=== PATIENT | male | born 1985 | race Caucasian/White ===

== ENCOUNTER 2022-11-23 20:57 | Emergency (ER) | payer MEDICAID, OTHER ==
[~2022-11-23] VITALS: Ht 175.3 cm; Wt 78.0 kg
[2022-11-23] MEDS ORDERED: NALOXONE HCL 1 MG/ML 2ML VIAL IV ONE (23:30)
[2022-11-23 23:49] LABS: BASOPHILS % 0.6 % (0.0-2.0); HEMATOCRIT. 47.9 % (42.0-52.0); HEMOGLOBIN. 16.3 g/dL (14.0-18.0); LYMPHOCYTES % 17.1 % (20.0-50.0); MEAN CORPUSCULAR HEMOGLOBIN 30.5 pg (28.0-32.0); MEAN CORPUSCULAR VOLUME 89.6 fL (80.0-94.0); MONOCYTES % 5.5 % (2.0-8.0); NEUTROPHILS % 75.8 % (40.0-76.0); PLATELET 251 x1000/uL (130-400); RED BLOOD CELL COUNT 5.34 mill/uL (4.7-6.1); RED CELL DISTRIBUTION WIDTH 12.9 % (11.6-14.6)
[2022-11-24 00:07] LABS: CLARITY URINE CLEAR (CLEAR); COLOR URINE YELLOW (YELLOW); KETONES URINE TRACE (NEGATIVE); LEUKOCYTE ESTERASE URINE NEGATIVE (NEGATIVE); NITRITE URINE NEGATIVE (NEGATIVE); OCCULT BLOOD URINE NEGATIVE (NEGATIVE); PROTEIN URINE TRACE (NEGATIVE); SPECIFIC GRAVITY URINE 1.024 (1.005-1.030)
[2022-11-24 00:19] LABS: *AMPHETAMINES SCREEN URINE PRESUMTIVE POSITIVE (NEGATIVE); *BARBITURATES SCREEN URINE NEGATIVE (NEGATIVE); *BENZODIAZEPINES SCREEN URINE NEGATIVE (NEGATIVE); *COCAINE SCREEN URINE NEGATIVE (NEGATIVE); CANNABINOID URINE SCREEN NEGATIVE (NEGATIVE); METHADONE URINE SCREEN NEGATIVE (NEGATIVE); OPIATES URINE SCREEN PRESUMTIVE POSITIVE (NEGATIVE); PHENCYCLIDINE URINE SCREEN NEGATIVE (NEGATIVE)
[2022-11-24 00:25] LABS: CHLORIDE 109 mEq/L (98-107)
[2022-11-24 00:36] LABS: ETHANOL BLOOD 98 mg/dL
[2022-11-24 03:30] VITALS: BP 147/102
== END 2022-11-24 04:55 | disposition home or self-care (01) ==
LOC: ER 20:57
DX: T43.651A Poisoning by methamphetamines accidental (unintentional), initial encounter (principal); R51.9 Headache, unspecified; I11.9 Hypertensive heart disease without heart failure; F11.90 Opioid use, unspecified, uncomplicated; Y92.89 Other specified places as the place of occurrence of the external cause
CPT/HCPCS: 36415; 70450; 80053; 80305; 80307; 80320; 80329; 81003; 82140; 82962; 83605; 85025; 96374; 99291; J2310; Z7610; G0480

== ENCOUNTER 2023-06-12 19:44 | Emergency (ER) | payer MEDICAID, OTHER ==
[~2023-06-12] VITALS: Ht 175.3 cm; Wt 72.8 kg
[2023-06-12 20:05] VITALS: BP 159/110; PULSE 80; RESP 17; TEMP 98.6; O2SAT 99
[2023-06-12] MEDS ORDERED: LISI20TA31 PO (20:34)
[2023-06-12] MEDS ORDERED: CEPH500C2 PO (20:34)
[2023-06-12] MEDS ORDERED: NAPR-679 MT (20:34)
[2023-06-12] MEDS ORDERED: CHLO473M2 MT (20:34)
[2023-06-12] MEDS ORDERED: SULF1TAB48 MT (20:34)
== END 2023-06-12 20:53 | disposition home or self-care (01) ==
LOC: ER 19:54
DX: S01.512A Laceration without foreign body of oral cavity, initial encounter (principal); K12.2 Cellulitis and abscess of mouth; I10 Essential (primary) hypertension; F11.90 Opioid use, unspecified, uncomplicated; F15.90 Other stimulant use, unspecified, uncomplicated; Y08.89XA Assault by other specified means, initial encounter; Y93.89 Activity, other specified; Y92.89 Other specified places as the place of occurrence of the external cause; Y99.8 Other external cause status
CPT/HCPCS: 99283

== ENCOUNTER 2023-06-15 07:43 | Emergency (ER) | payer MEDICAID, OTHER ==
[~2023-06-15] VITALS: Ht 177.8 cm; Wt 79.4 kg
[~2023-06-15 07:43] MED LIST: CEPH500C2 PO; CHLO473M2 MT; LISI20TA31 PO; NAPR-679 MT; SULF1TAB48 MT
[2023-06-15 07:47] VITALS: O2SAT 100
[2023-06-15] MEDS ORDERED: PIPERACILLIN/TAZ 3.375G PREMIX 50 ML IV ONE (08:45)
[2023-06-15] MEDS ORDERED: SODIUM CHLORIDE 0.9% 1000ML BAG (SEPSIS BOLUS) IV ONE (08:45)
[2023-06-15] MEDS ORDERED: VANCOMYCIN 1G PREMIX 200 ML IV ONE (08:45)
[2023-06-15 09:20] LABS: BASOPHILS % 0.5 % (0.0-2.0); EOSINOPHILS % 2.2 % (0.0-5.0); HEMATOCRIT. 48.9 % (42.0-52.0); HEMOGLOBIN. 16.4 g/dL (14.0-18.0); LYMPHOCYTES % 15.3 % (20.0-50.0); MEAN CORPUSCULAR HEMOGLOBIN 30.2 pg (28.0-32.0); MEAN CORPUSCULAR HGB CONC 33.4 g/dL (31.0-37.0); MEAN CORPUSCULAR VOLUME 90.2 fL (80.0-94.0); MONOCYTES % 7.2 % (2.0-8.0); NEUTROPHILS % 74.8 % (40.0-76.0); PLATELET 274 x1000/uL (130-400); RED BLOOD CELL COUNT 5.42 mill/uL (4.7-6.1)
[2023-06-15 09:31] LABS: INR 0.9; PROTHROMBIN TIME 9.8 sec (9.6-11.0)
[2023-06-15 09:59] LABS: CHLORIDE 105 mEq/L (98-107); INDEX HEMOLYSI 1 (1-3); INDEX ICTERIC 1 (1-4); INDEX LIPEMIC 1 (1-3); SODIUM 136 mEq/L (136-145)
[2023-06-15 10:09] LABS: ALANINE AMINOTRANSFERASE 28 IU/L (13-61); ALBUMIN 3.7 g/dL (3.4-5.0); ASPARTATE AMINOTRANSFERASE 16 IU/L (15-37); BILIRUBIN TOTAL 0.3 mg/dL (0.1-1.0); CALCIUM 8.9 mg/dL (8.5-10.1); CARBON DIOXIDE 28 mEq/L (21-32); GLUCOSE 104 mg/dL (70-105); PROTEIN TOTAL 7.5 g/dL (6.0-8.3); UREA NITROGEN BLOOD 18 mg/dL (7-21)
[2023-06-15 10:21] LABS: CLARITY URINE CLEAR (CLEAR); COLOR URINE YELLOW (YELLOW); GLUCOSE URINE NEGATIVE (NEGATIVE); KETONES URINE NEGATIVE (NEGATIVE); LEUKOCYTE ESTERASE URINE NEGATIVE (NEGATIVE); NITRITE URINE NEGATIVE (NEGATIVE); OCCULT BLOOD URINE NEGATIVE (NEGATIVE); PROTEIN URINE NEGATIVE (NEGATIVE); SPECIFIC GRAVITY URINE 1.019 (1.005-1.030); UROBILINOGEN URINE 0.2 E.U./dL (0.2-1.0)
[2023-06-15 10:36] VITALS: BP 149/94; PULSE 69; RESP 22; TEMP 98.2
[2023-06-15] MEDS ORDERED: KETOROLAC 15MG/ML VIAL IV ONE (12:30)
[2023-06-15] MEDS ORDERED: IOHEXOL-300 100 ML BOTTLE ONE (14:18)
== END 2023-06-15 17:50 | disposition left against medical advice (07) ==
LOC: ER 07:43
DX: L02.01 Cutaneous abscess of face (principal); F15.10 Other stimulant abuse, uncomplicated; F11.10 Opioid abuse, uncomplicated; R51.9 Headache, unspecified
CPT/HCPCS: 80053; 81003; 83605; 85025; 85610; 87040; 87086; 36415; 84145; 71045; 70487; 96368; 96365; 96366; 96375; 99285; Q9967; J1885; J2543; J3370; J7030; Z7610 ×4

== ENCOUNTER 2025-07-05 02:45 | Emergency (ER) | payer MEDICAID, OTHER ==
[~2025-07-05] VITALS: Ht 177.8 cm; Wt 91.0 kg
[2025-07-05 02:48] VITALS: TEMP 97.9; O2SAT 99
[2025-07-05 03:38] LABS: BASOPHILS % 0.6 % (0.0-2.0); EOSINOPHILS % 3.8 % (0.0-5.0); HEMATOCRIT. 45.3 % (42.0-52.0); HEMOGLOBIN. 15.3 g/dL (14.0-18.0); LYMPHOCYTES % 29.0 % (20.0-50.0); MEAN PLATELET VOLUME 8.4 fl (7.4-10.4); MONOCYTES % 9.8 % (2.0-8.0); NEUTROPHILS % 56.8 % (40.0-76.0); PLATELET 219 x1000/uL (130-400); RED BLOOD CELL COUNT 5.23 mill/uL (4.7-6.1); RED CELL DISTRIBUTION WIDTH 13.7 % (11.6-14.6)
[2025-07-05 03:59] LABS: CREATININE 1.2 mg/dL (0.6-1.3); UREA NITROGEN BLOOD 12 mg/dL (9-23)
[2025-07-05 04:00] LABS: TROPONIN I HIGH SENSITIVITY 4 ng/L (3.0-53)
[2025-07-05 04:01] LABS: ASPARTATE AMINOTRANSFERASE 24 IU/L (<34); BILIRUBIN DIRECT 0.2 mg/dL (<=3.0); PROTEIN TOTAL 6.5 g/dL (6.0-8.3)
[2025-07-05 04:02] LABS: BILIRUBIN TOTAL 0.6 mg/dL (0.1-1.0)
[2025-07-05 04:03] LABS: CLARITY URINE CLEAR (CLEAR); COLOR URINE YELLOW (YELLOW); GLUCOSE URINE NEGATIVE (NEGATIVE); KETONES URINE NEGATIVE (NEGATIVE); LEUKOCYTE ESTERASE URINE NEGATIVE (NEGATIVE); NITRITE URINE NEGATIVE (NEGATIVE); OCCULT BLOOD URINE NEGATIVE (NEGATIVE); PH URINE 6.0 (4.5-8.0); PROTEIN URINE TRACE (NEGATIVE); SPECIFIC GRAVITY URINE 1.029 (1.005-1.030); UROBILINOGEN URINE 1.0 E.U./dL (0.2-1.0)
[2025-07-05] MEDS: SODIUM CHLORIDE 0.9% 1,000 ML IV ONE (04:09)
[2025-07-05 04:12] LABS: *AMPHETAMINES SCREEN URINE PRESUMPTIVE POSITIVE (NEGATIVE); *BARBITURATES SCREEN URINE NEGATIVE (NEGATIVE); *BENZODIAZEPINES SCREEN URINE NEGATIVE (NEGATIVE); *COCAINE SCREEN URINE NEGATIVE (NEGATIVE); CANNABINOID URINE SCREEN NEGATIVE (NEGATIVE); ECSTASY MDMA SCREEN URINE CONF.TEST INDICATED (NEGATIVE); METHADONE URINE SCREEN NEGATIVE (NEGATIVE); OPIATES URINE SCREEN NEGATIVE (NEGATIVE); PHENCYCLIDINE URINE SCREEN NEGATIVE (NEGATIVE)
[2025-07-05 06:11] LABS: SQUAMOUS EPITHELIAL CELL URINE FEW /lpf (RARE/1+); WBC URINE 0-2 /hpf (0-2)
[2025-07-05 06:12] LABS: BACTERIA URINE NONE SEEN; RBC URINE 0-2 /hpf (0-2)
[2025-07-05 08:12] VITALS: BP 161/121; PULSE 74; RESP 18; O2SAT 99
[2025-07-05] MEDS: HYDRALAZINE 20MG/ML VIAL IV SCH (08:30)
== END 2025-07-05 08:30 | disposition left against medical advice (07) ==
LOC: ER 02:45 → EDBEDREQ 05:15 → EDBEDREQTM 05:15 → ER 08:30 → CMPBEDREQ 12:03
DX: F19.129 Other psychoactive substance abuse with intoxication, unspecified (principal); F15.90 Other stimulant use, unspecified, uncomplicated; F11.90 Opioid use, unspecified, uncomplicated; I10 Essential (primary) hypertension; Z79.899 Other long term (current) drug therapy
CPT/HCPCS: 80076; 80305; 80048; 81003; 80307; 80329; 80320; 82140; 82550; 83880; 83735; 85025; 84484; 36415; 70450; 96361; 96374; 99285; J0360; J7030; Z7610 ×2; G0480